=== PATIENT | male | born 1950 | race Caucasian/White ===

== ENCOUNTER 2019-07-07 13:42 | Emergency (ER) | payer OTHER, MEDICAID ==
[~2019-07-07] VITALS: Ht 182.9 cm; Wt 79.4 kg
[~2019-07-07 13:42] MED LIST: CEPH-263 PO
[2019-07-07 14:15] VITALS: BP 151/90
[2019-07-07] MEDS ORDERED: PENI500T PO (14:42)
--- NOTE | 2019-07-07 14:42 | PHYS DOC ---
Past Medical History Past Medical History: Arthritis Additional Past Medical Histor: BACK PAIN Past Surgical History: No Surgical History Alcohol Use: None Drug Use: None Adult General Chief Complaint Chief Complaint: DENTAL PROBLEM HPI HPI 68-year-old male presenting with dental pain on the right lower tooth. It is a throbbing sensation associated with mild swelling. The pain is moderate nonradiating without alleviating factors. Review of systems is negative for difficulty breathing difficulty swallowing chest pain shortness of breath or vomiting. All other review of systems is negative. ED course: 68-year-old male presenting to the emergency department today with a toothache. On exam he has a cavity with associated periapical abscess. We will give him oral penicillin and recommended 400 of ibuprofen as needed for pain and refer him to a dentist for today or tomorrow. Allergies Allergies Allergies Coded Allergies Type Severity Reaction Last Updated Verified No Known Drug Allergies 05/01/16 No Physical Exam Physical Exam Constitutional: Well developed, well nourished, no acute distress, non-toxic appearance. [] HENT: Normocephalic, atraumatic, bilateral external ears normal, oropharynx moist, no oral exudates, nose normal. [] Patient has poor dentition with a cavity in the right lower tooth. Small periapical abscess. Eyes: PERRLA, EOMI, conjunctiva normal, no discharge. [] Neck: Normal range of motion, no tenderness, supple, no stridor. [] Cardiovascular:Heart rate regular rhythm, no murmur [] Lungs & Thorax: Bilateral breath sounds clear to auscultation [] Abdomen: Bowel sounds normal, soft, no tenderness, no masses, no pulsatile masses. [] Skin: Warm, dry, no erythema, no rash. [] Back: No tenderness, no CVA tenderness. [] Extremities: No tenderness, no cyanosis, no clubbing, ROM intact, no edema. [] Neurologic: Alert and oriented X 3, normal motor function, normal sensory function, no focal deficits noted. [] Psychologic: Affect normal, judgement normal, mood normal. [] Current Patient Data Vital Signs Vital Signs Date Time Temp Pulse Resp B/P (MAP) Pulse Ox O2 Delivery O2 Flow Rate FiO2 07/07/19 14:15 97.7 95 16 151/90 (110) 97 Room Air 97.7 EKG EKG [] Radiology/Procedures Radiology/Procedures [] Course & Med Decision Making Course & Med Decision Making Pertinent Labs and Imaging studies reviewed. (See chart for details) [] Dragon Disclaimer Dragon Disclaimer This electronic medical record was generated, in whole or in part, using a voice recognition dictation system. Departure Departure Impression: Primary Impression: Pain, dental Disposition: HOME, SELF-CARE Condition: STABLE Referrals: Medardo VIZCAINO MD (PCP) Patient Instructions: Dental Caries Additional Instructions: Thank you for allowing us to participate in your care today. Return to the emergency department you have any new or worsening symptoms, or if you are concerned for any reason. Return to emergency department if you have any new or concerning symptoms including but not limited to fever, chills, nausea, vomiting, intractable pain, any new rashes, chest pain, shortness of air, uncontrolled bleeding, difficulty breathing, and/or vision loss. Follow up with A DENTIST within 1-2 days. Call your Primary Doctor tomorrow and inform them of your visit today. If you do not have a primary care provider we are happy to provide you with a list of our primary care providers contact information. This condition should be evaluated by your primary care physician and any recommended consulting services for continued management within 2 days after discharge. If at any time, you are having difficulty getting into your primary care doctor or a specialist, return to the emergency department. Scripts Penicillin V Potassium (PENICILLIN V POTASSIUM) 500 Mg Tablet 1 TAB PO BID for 7 Days, #14 TAB Prov: PRESTON PEREIRA MD 07/07/19 PRESTON PEREIRA MD Jul 07, 2019 14:42
== END 2019-07-07 14:48 | disposition home or self-care (01) ==
LOC: ER 13:42
DX: K04.7 Periapical abscess without sinus (principal); K08.89 Other specified disorders of teeth and supporting structures
CPT/HCPCS: 99283

== ENCOUNTER 2020-10-23 16:12 | Emergency (ER) | payer OTHER, MEDICAID ==
[~2020-10-23 16:12] MED LIST changes: +PENI500T PO
[2020-10-23] MEDS ORDERED: CEPH500C PO (22:16)
== END 2020-10-23 17:30 ==
LOC: ER 16:12
DX: S61.412A Laceration without foreign body of left hand, initial encounter (principal); Z53.21 Procedure and treatment not carried out due to patient leaving prior to being seen by health care provider

== ENCOUNTER 2020-10-23 20:20 | Emergency (ER) | payer OTHER, MEDICAID ==
[~2020-10-23] VITALS: Ht 180.3 cm; Wt 75.0 kg
[2020-10-23 21:14] VITALS: BP 155/86
[2020-10-23] MEDS ORDERED: DIPH,PERTUSS(ACELL),TET VAC/PF 0.5 ML SYRINGE. VAX IM ONE (22:00)
--- NOTE | 2020-10-23 22:00 | ED.ADGEN ---
Past Medical History Past Medical History: Arthritis Additional Past Medical Histor: BACK PAIN, HEP C Past Surgical History: No Surgical History Smoking Status: Current Every Day Smoker Alcohol Use: None Drug Use: None General Adult EDM: Chief Complaint: LACERATION/AVULSION HPI: HPI: Patient is a 70 year old male who presents to the emergency department with complaints of a laceration to the palm of his left hand at the base of his thumb since yesterday. Patient reports that he was using a utility knife to fix some of his stools when and accidentally slipped and cut his hand. He is unsure when his last tetanus immunization was. Patient denies any decreased range of motion or altered sensation of the hand. He states that the wound has been open for greater than 24 hours. He denies any fever or purulent drainage from the wound. He denies any bleeding from the site today. He currently rates his discomfort a 2 out of 10 on the pain scale, he denies any alleviating or exacerbating symptoms. Patient states that he had initially washed the wound off at home with some antiseptic. Review of Systems: Review of Systems: Complete ROS is negative unless otherwise noted in HPI. Current Medications: Current Medications Medications (Trade) Dose Ordered Sig/Bird Start Time Stop Time Status Last Admin Dose Admin Diphtheria/ Tetanus/Acell Pertussis (ADACEL TDap SYRINGE) 0.5 ml ONCE ONCE 10/23/20 22:00 10/23/20 22:01 DC 10/23/20 22:02 0.5 ML Allergies: Allergies: Allergies Coded Allergies Type Severity Reaction Last Updated Verified No Known Drug Allergies 05/01/16 No Physical Exam: PE: See Above Constitutional: Well developed, well nourished, no acute distress, non-toxic appearance. [] HENT: Normocephalic, atraumatic, bilateral external ears normal, nose normal. [] Eyes: PERRLA, EOMI, conjunctiva normal, no discharge. [] Neck: Normal range of motion, no stridor. [] Cardiovascular:Heart rate regular rhythm Lungs & Thorax: Respirations even and unlabored, no retractions, no respiratory distress Skin: Warm, dry, no erythema, no rash; 2 cm laceration to palmar aspect of left hand at the base of the left thumb, no visible foreign body, no active bleeding, no surrounding erythema, no warmth, no edema [] Extremities: No cyanosis, ROM intact, no edema. [] Neurologic: Alert and oriented X 3, no focal deficits noted. [] Psychologic: Affect normal, judgement normal, mood normal. [] Current Patient Data: Vital Signs: Vital Signs Date Time Temp Pulse Resp B/P (MAP) Pulse Ox O2 Delivery O2 Flow Rate FiO2 10/23/20 21:14 97.6 88 20 155/86 (109) 97 Room Air 97.6 EKG: EKG: [] Heart Score: Risk Factors: Risk Factors: DM, Current or recent (<one month) smoker, HTN, HLP, family history of CAD, obesity. Risk Scores: Score 0 - 3: 2.5% MACE over next 6 weeks - Discharge Home Score 4 - 6: 20.3% MACE over next 6 weeks - Admit for Clinical Observation Score 7 - 10: 72.7% MACE over next 6 weeks - Early Invasive Strategies Radiology/Procedures: Radiology/Procedures: [] Course & Med Decision Making: Course & Med Decision Making Pertinent Labs and Imaging studies reviewed. (See chart for details) [] Dragon Disclaimer: Dragon Disclaimer: This electronic medical record was generated, in whole or in part, using a voice recognition dictation system. Departure Departure Impression: Primary Impression: Laceration of left hand with delay in treatment Additional Impression: Need for Tdap vaccination Disposition: 01 DC HOME SELF CARE/HOMELESS Condition: STABLE Referrals: Medardo VIZCAINO MD (PCP) Patient Instructions: Laceration, Old, Not Sutured, VIS, Tetanus, Diphtheria (Td); Tetanus, Diphtheria, Pertussis (Tdap) - CDC Additional Instructions: Fill the prescription and use it as directed. Keep the area clean and dry. You may take Tylenol or ibuprofen as needed for pain. Change the dressing twice a day and apply antibiotic ointment to the area. Follow-up with your primary care doctor in 1 to 2 days for wound recheck, return to the ER sooner if you develop signs of infection including: redness, warmth, drainage, or a fever. Scripts Cephalexin (CEPHALEXIN) 500 Mg Capsule 1 CAP PO QID for 7 Days, #28 CAP 0 Refills Prov: LIANA ANDRE APRN 10/23/20 Problem Qualifiers Primary Impression: Laceration of left hand with delay in treatment Encounter type: initial encounter Qualified Codes: S61.412A - Laceration without foreign body of left hand, initial encounter LIANA ANDRE CREMATORIUM OPERATOR Oct 23, 2020 22:00
[2020-10-23] MEDS ORDERED: CEPH500C PO (22:16)
== END 2020-10-23 23:07 | disposition home or self-care (01) ==
LOC: ER 20:20
DX: S61.412A Laceration without foreign body of left hand, initial encounter (principal); M19.90 Unspecified osteoarthritis, unspecified site; F17.200 Nicotine dependence, unspecified, uncomplicated; W26.0XXA Contact with knife, initial encounter; Y93.89 Activity, other specified; Y92.89 Other specified places as the place of occurrence of the external cause; Y99.8 Other external cause status
CPT/HCPCS: 90471; 90715; 99283

== ENCOUNTER → 2021-06-28 | Outpatient (CLI) | payer OTHER, MEDICAID ==
[~2021-06-28] MED LIST changes: +CEPH500C PO
--- NOTE | 2021-06-28 12:16 | RAD ---
EXAM: Head CT without contrast. HISTORY: Daily persistent headache. TECHNIQUE: Computed tomographic images of the head were obtained without contrast. *One or more of the following individualized dose reduction techniques were utilized for this examina tion: 1. Automated exposure control. 2. Adjustment of the mA and/or kV according to patient size. 3. Use of iterative reconstruction technique. COMPARISON: None. FINDINGS: There is no acute or subacute extra-axial or intraparenchymal hemorrhage. There is no mass effect or midline shift. There is no hydrocephalus. There are areas of decreased attenuation within the cerebral white matter, nonspecific and likely rel ated to chronic small vessel disease. There is mild cerebral volume loss. The visualized portions of the orbits, paranasal sinuses and mastoid air cells are unremarkable. No s uspicious calvarial lesion is seen. IMPRESSION: No acute intracranial findings. Electronically signed by: Iliana Campbell MD (06/28/2021 12:13 PM) [id number]
== END ==
LOC: CT 11:37
PROVIDERS: ATTEND Family Medicine
DX: G44.52 New daily persistent headache (NDPH) (principal)
CPT/HCPCS: 70450